=== PATIENT | female | born 1965 | race African-American/Black ===

== ENCOUNTER 2018-11-21 12:19 | Emergency (ER) | payer OTHER ==
[2018-11-21 14:42] LABS: Absolute Lymphocytes (CBC) 2.2 K/uL (0.7-4.9); Basophils % 1.2 % (0-1.3); Eosinophils % 2.3 % (0-4.4); Hematocrit 22.4 % (36.0-45.0); Lymphocytes % 33.3 % (15.3-44.8); MPV 8.1 fL (7.6-11.3); Monocytes % 10.8 % (3.3-12.3); RBC Red Blood Cell Count 3.47 M/uL (3.86-4.86)
[2018-11-21 15:00] LABS: Potassium 3.9 mmol/L (3.5-5.1)
[2018-11-21 15:34] LABS: Anisocytosis 2+; Blood Morphology Comment NOTED (NOT SEEN); Platelet Estimate INCR; Urine White Blood Cell Casts OK
[2018-11-21 15:35] LABS: Hypochromasia 2+
[2018-11-21 15:36] LABS: Ovalocytes 1+; Poikilocytosis 1+
[2018-11-21 15:40] LABS: Urine Blood NEGATIVE (NEG); Urine Glucose NEGATIVE (NEG); Urine Protein NEGATIVE (NEG); Urine pH 6.5 (5.0-7.0)
--- NOTE | 2018-11-21 16:02 | RAD REPORT ---
EXAM DESCRIPTION: CT - Abdomen Pelvis W Contrast - 11/21/2018 3:43 pm CLINICAL HISTORY: Abdominal pain, left lower pole mass COMPARISON: None. TECHNIQUE: Biphasic, helical CT imaging of the abdomen and pelvis was performed following 100 ml non -ionic IV contrast. No oral contrast administered. Delayed imaging of the pelvis was performed to cor rect for motion artifact on earlier imaging and due to need to evaluate IV injection site. All CT scans are performed using dose optimization technique as appropriate and may include automated exposure control or mA/KV adjustment according to patient size. FINDINGS: Multiple variably sized noncalcified masses in each lung base up to 15 mm in size. No sky cardial thickening or effusion. No pleural effusion. Liver size is normal. In the dome of the right lobe a 23 millimeter round low-density mass is present . This does not have simple cyst characteristics. A 12 millimeter low-density lesion is present in th e inferior tip of the right lobe liver. A 20 millimeter low-density lesion is present medial right lo be near the IVC. No splenomegaly or focal splenic process. No pancreatic abnormality seen. Gallbladde r and biliary tree are also without suspicious finding. Symmetric renal function is seen with no hydronephrosis or suspicious renal mass. No pyelonephritis o r acute parenchymal process. No bladder abnormalities. No adrenal abnormality seen. An enlarged lobulated uterus is present. There are numerous variably sized uterine masses up to 3 cm in size. Ovaries are not clearly distinguishable from the isodense tunneled opacified small bowel in each adnexa. No gastric dilatation or gastric wall thickening. No acute small bowel finding. Sigmoid diverticulosi s is present without diverticulitis. Mass cannot be excluded from the rectum or rectosigmoid junction region. No free air or pneumatosis. No abnormal free fluid collection. No bulky lymphadenopathy identified . Small lymph nodes may be obscured. There is a relative paucity of intra-abdominal fat creating isod [place] between on opacified bowel and in the lymph node. Disc and bony degenerative changes are present. No pathologic bone process identifiable. IMPRESSION: Multiple noncalcified spiculated masses in each lung base up to 15 mm in size. Metastati c disease is most likely. Lymphoma would be possible given the left orbital finding detailed on recen t MRI. Three lesions are present in the right lobe of the liver suspicious for metastatic disease. Enlarged lobulated uterus with multiple masses. This is typically a multi fibroid uterus. However, gi tavon the undiagnosed orbit and lung lesions, neoplastic process cannot be excluded. No gross abdominal or pelvic abnormal lymphadenopathy pattern. The isodensity of the bowel decreases sensitivity. Likewise, mass cannot be excluded from the rectum or rectosigmoid junction of the colon.
[2018-11-21] MEDS ORDERED: DIPHENHYDRAMINE 50 MG/ML VIAL ONE (17:03)
[2018-11-21] MEDS ORDERED: ACETAMINOPHEN 325 MG TABLET ONE (17:03)
[2018-11-21] MEDS ORDERED: NA CHLORIDE 0.9% 250 ML ONE (17:05)
--- NOTE | 2018-11-21 17:09 | ER ---
Nurse's Notes [facility] Name: Cherelle Ackerman Age: 53 yrs Sex: Female : 1965 Arrival Date: 11/21/2018 Time: 12:21 Bed 8 Private MD: Maxx Bernardo Diagnosis: Gastrointestinal hemorrhage, unspecified;Anemia;Other specified diseases of anus and rectum-Anal Mass Presentation: 11/21 12:30 Presenting complaint: Patient states: "I saw Dr. Ro yesterday and he did routine aa5 blood work and they called me today and said that my hemoglobin was a 5 and to come here". Pt denies SOB, denies chest pain. Pt denies any bleeding. Pt reports hx of Rectal cancer but is not on chemotherapy or radiation. 12:30 Transition of care: patient was not received from another setting of care. Onset of aa5 symptoms was November 21, 2018. Risk Assessment: Do you want to hurt yourself or someone else? Patient reports no desire to harm self or others. Care prior to arrival: None. 12:30 Acuity: ANABELLE 2 aa5 12:30 Method Of Arrival: Ambulatory aa5 12:30 Initial Sepsis Screen: Does the patient meet any 2 criteria? HR > 90 bpm. Does the aa5 patient have a suspected source of infection? No. Patient's initial sepsis screen is negative. 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 - Ebola Screening: : No symptoms or risks identified at this time. - Social history:: Smoking status: unknown. Screenin:35 Abuse screen: Denies threats or abuse. Nutritional screening: No deficits noted. aa5 Tuberculosis screening: No symptoms or risk factors identified. Fall Risk None identified. Assessment: 12:35 General: Appears comfortable, Behavior is calm, cooperative. Pain: Complains of pain in aa5 rectum Pain does not radiate. Quality of pain is described as pressure, tender, Is continuous, Aggravated by increased activity, repositioning. Neuro: Level of Consciousness is awake, alert, obeys commands, Oriented to person, place, time, situation, Reports Generalized weakness . Cardiovascular: Denies chest pain, Heart tones S1 S2 present Rhythm is regular. Respiratory: Airway is patent Respiratory effort is even, unlabored, Respiratory pattern is regular, symmetrical, Breath sounds are clear bilaterally. Denies shortness of breath. GI: Abdomen is flat, Bowel sounds present X 4 quads. Abd is soft and non tender X 4 quads. Patient currently denies nausea, vomiting, denies bloody stools, pt states "I only see blood when I wipe". : Reports recent UTI, has been taking Bactrim for 4 days. EENT: No signs and/or symptoms were reported regarding the EENT system. Derm: Skin is dry, Skin is pale, Skin temperature is warm. Musculoskeletal: Range of motion: intact in all extremities. 12:45 Reassessment: Pt assisted to restroom via wheelchair. . aa5 13:00 Reassessment: Pt remains in restroom, pt states "I am okay I am just having a bowel aa5 movement" . 13:40 Reassessment: PA notified of lab draw being delayed due to patient in restroom. . aa5 14:00 Reassessment: Pt transported back to room via wheelchair. . aa5 14:00 Neuro: Level of Consciousness is awake, alert, obeys commands, Oriented to person, aa5 place, time, situation. Respiratory: Airway is patent Respiratory effort is even, unlabored, Respiratory pattern is regular, symmetrical. Derm: Skin is dry, Skin is pale, Skin temperature is warm. 14:10 Reassessment: Missed IV attempt by AJ Rainey RN at bedside aa5 attempting IV at this time. . 15:15 Reassessment: Loose brown stool with bright red blood noted, Anus appears dilated, aa5 excoriation of skin noted to anal area. Pt c/o rectal area feeling "sore" . 15:15 Neuro: Level of Consciousness is awake, alert, obeys commands, Oriented to person, aa5 place, time, situation. Respiratory: Airway is patent Respiratory effort is even, unlabored, Respiratory pattern is regular, symmetrical. Derm: Skin is dry, Skin is pale, Skin temperature is warm. 16:00 Reassessment: Pt assisted to restroom via wheelchair, pt voided once . aa5 16:12 Reassessment: Blood transfusion consent for RBCs signed by patient. . aa5 16:12 Neuro: Level of Consciousness is awake, alert, obeys commands, Oriented to person, aa5 place, time, situation. Respiratory: Airway is patent Respiratory effort is even, unlabored, Respiratory pattern is regular, symmetrical. Derm: Skin is dry, Skin is pale, Skin temperature is warm. 17:35 Reassessment: RBC transfusion started at 1717, started at 50 cc/hr and now infusing at aa5 150 cc/hr. Pt tolerating well. Lungs CTA. Pt denies any complaints. NSR on monitor. (see blood transfusion record for further information). 18:00 Reassessment: Unsuccessful attempt to call report to [facility]. aa5 18:15 Reassessment: Pt assisted with bedside commode, pt voided once . aa5 18:17 Neuro: Level of Consciousness is awake, alert, obeys commands, Oriented to person, aa5 place, time, situation. Cardiovascular: Denies chest pain, Rhythm is sinus rhythm. Respiratory: Airway is patent Respiratory effort is even, unlabored, Respiratory pattern is regular, symmetrical, Breath sounds are clear bilaterally. Denies shortness of breath. Derm: Skin is dry, Skin is pale, Skin temperature is warm. 19:40 Reassessment: Patient appears in no apparent distress at this time. Patient and/or tl2 family updated on plan of care and expected duration. Pain level reassessed. Patient is alert, oriented x 3, equal unlabored respirations, skin warm/dry/pink. Spoke with received nurse at [facility], ROBERTO Bansal. Stated that she cannot accept in progress blood transfusion and that she would rather start second unit when she arrives to [facility]. Spoke with SHOBHA Connolly and he stated that she was stable enough to be transferred after completion of first unit. Will proceed with transfer. Vital Signs: 12:32 BP 122 / 71; Pulse 108; Resp 18 S; Temp 99.3(TE); Pulse Ox 100% on R/A; aa5 14:00 BP 113 / 68; Pulse 99; Resp 16 S; Temp 98.1(O); Pulse Ox 100% on R/A; aa5 15:00 BP 110 / 62; Pulse 115; Resp 18 S; Pulse Ox 99% on R/A; aa5 17:00 BP 98 / 80; Pulse 96; Resp 16 S; Temp 98.1(O); Pulse Ox 100% on R/A; aa5 17:32 BP 124 / 62; Pulse 91; Resp 16 S; Temp 98.1(O); Pulse Ox 100% on R/A; aa5 19:31 BP 109 / 76; Pulse 84; Resp 18; Temp 98.5(O); Pulse Ox 100% on R/A; tl2 ED Course: 12:21 Patient arrived in ED. as 12:21 Maxx Bernardo MD is Private Physician. as 12:30 Arm band placed on Patient placed in an exam room, on a stretcher. aa5 12:30 Patient has correct armband on for positive identification. Placed in gown. Bed in low aa5 position. Call light in reach. Side rails up X2. 12:30 Warm blanket given. Pillow given. Verbal reassurance given. cafeteria monitor on. Pulse jp3 ox on. NIBP on. 12:32 Mohsen Hernandez PA is PHCP. jr8 12:32 Yobany Breaux MD is Attending Physician. jr8 12:41 Phoebe Lewis, ROBERTO is Primary Nurse. aa5 12:54 Triage completed. aa5 14:38 Initial lab(s) drawn, by me, sent to lab. T\\T\\S collected, blood band applied to patient. iw Inserted saline lock: 22 gauge in right antecubital area, using aseptic technique. Blood collected. 15:37 CT Abd/Pelvis - IV Contrast Only In Process Unspecified. EDMS 15:54 initiated a transfer with Jennifer Anguiano RN from [facility]. eb 16:12 connected the colorectal surgeon monitoring specialist for [facility] with Mohsen YEAGER for patient eb transfer consultation. 16:53 connected the hospitalist monitoring specialist for [facility] with Mohsen YEAGER for patient transfer eb consultation. 17:06 administrative approval given by Dahlia Smith RN supervisor transferring and boxing/ patient has eb been accepted to the [facility] bed 2243/ report to be called to [phone]. 18:17 No provider procedures requiring assistance completed. aa5 19:00 Report given to ROBERTO Yanez. aa5 19:31 IV is patent, with fluids infusing freely, with good blood return, Patient transferred, tl2 IV remains in place. Administered Medications: 16:55 Drug: Tylenol 650 mg Route: PO; aa5 17:17 Follow up: Response: No adverse reaction aa5 16:55 Drug: Benadryl 12.5 mg Route: IVP; Site: right antecubital; aa5 17:15 Follow up: Response: No adverse reaction aa5 Point of Care Testing: Guaiac: 15:15 Stool Guaiac: Positive; Stool Hemoccult Control: Pass; aa5 15:15 Completed by SHOBHA aa5 Outcome: 17:09 ER care complete, transfer ordered by MD. cruz 19:31 Transferred by ground EMS to [facility], Transfer form completed. 19:31 Condition: stable 19:31 Discharge instructions given to patient, Instructed on the need for transfer. 20:22 Patient left the ED. tl2 Signatures: Dispatcher [employer] EDMS Anju Garcia Irene, RN RN Phoebe Lewis RN RN aa5 Mohsen Hernandez PA PA jr8 Jeferson Pereira RN RN hj Knox, Taylor, RN RN tl2 Jennifer Mccoy Jacob jp3 Corrections: (The following items were deleted from the chart) 14:27 14:25 Initial Sepsis Screen: Does the patient meet any 2 criteria? HR > 90 bpm. No. aa5 Patient's initial sepsis screen is negative. aa5 16:58 16:12 connected the colorectal surgeon with Mohsen YEAGER for patient transfer consultation ebeb 19:41 19:31 Reassessment: Patient appears in no apparent distress at this time. Patient tl2 and/or family updated on plan of care and expected duration. Pain level reassessed. Patient is alert, oriented x 3, equal unlabored respirations, skin warm/dry/pink. Spoke with ROBERTO Bansal receiving nurse at [facility] and she stated that if we start 2nd unit of blood here, they will not be able to complete transfusion at [facility] and she would rather start second unit when she arrives to room. Notified SHOBHA Connolly and he stated that pt was stable enough to be transferred after completion of the first unit. Will proceed with transfer : 19:31 BP 109 / 76; Pulse 83bpm; Resp 18bpm; Pulse Ox 100% RA; Temp 98.5F Oral; hj tl2 19:42 19:31 IV is patent, with fluids infusing freely, with good blood return, Patient tl2 transferred, IV remains in place.
--- NOTE | 2018-11-21 17:09 | EDPHYS ---
Physician Documentation [facility] Name: Cherelle Ackerman Age: 53 yrs Sex: Female : 1965 Arrival Date: 11/21/2018 Time: 12:21 Bed 8 Private MD: Maxx Bernardo ED Physician Yobany Breaux HPI: 11/21 14:12 This 53 yrs old Black Female presents to ER via Ambulatory with complaints of jr8 Anemia-needs blood transfusion. 14:12 Patient with history of untreated rectal cancer. Stated that she had routine blood work jr8 by PCP yesterday and shows hemoglobin of 5.1. Advised to come to ED at that time. Patient asymptomatic at this time . Severity of symptoms: At their worst the symptoms were mild in the emergency department the symptoms are unchanged. It is unknown whether or not the patient has had similar symptoms in the past. The patient has been recently seen by a physician:. 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 - Ebola Screening: : No symptoms or risks identified at this time. - Social history:: Smoking status: unknown. ROS: 14:12 Eyes: Negative for injury, pain, redness, and discharge, ENT: Negative for injury, jr8 pain, and discharge, Neck: Negative for injury, pain, and swelling, Cardiovascular: Negative for chest pain, palpitations, and edema, Respiratory: Negative for shortness of breath, cough, wheezing, and pleuritic chest pain, Abdomen/GI: Negative for abdominal pain, nausea, vomiting, diarrhea, and constipation, Back: Negative for injury and pain, MS/Extremity: Negative for injury and deformity, Skin: Negative for injury, rash, and discoloration, Neuro: Negative for headache, weakness, numbness, tingling, and seizure. Exam: 14:12 Eyes: Pupils equal round and reactive to light, extra-ocular motions intact. Lids and jr8 lashes normal. Conjunctiva pale. Sclera non icteric. Cornea within normal limits. Periorbital areas with no swelling, redness, or edema. ENT: Nares patent. No nasal discharge, no septal abnormalities noted. Tympanic membranes are normal and external auditory canals are clear. Oropharynx with no redness, swelling, or masses, exudates, or evidence of obstruction, uvula midline. Mucous membranes moist. Neck: Trachea midline, no thyromegaly or masses palpated, and no cervical lymphadenopathy. Supple, full range of motion without nuchal rigidity, or vertebral point tenderness. No Meningismus. Cardiovascular: Regular rate and rhythm with a normal S1 and S2. No gallops, murmurs, or rubs. Normal PMI, no JVD. No pulse deficits. Respiratory: Lungs have equal breath sounds bilaterally, clear to auscultation and percussion. No rales, rhonchi or wheezes noted. No increased work of breathing, no retractions or nasal flaring. Abdomen/GI: Soft, non-tender, with normal bowel sounds. No distension or tympany. No guarding or rebound. No evidence of tenderness throughout. Back: No spinal tenderness. No costovertebral tenderness. Full range of motion. MS/ Extremity: Pulses equal, no cyanosis. Neurovascular intact. Full, normal range of motion. Neuro: Awake and alert, GCS 15, oriented to person, place, time, and situation. Cranial nerves II-XII grossly intact. Motor strength 5/5 in all extremities. Sensory grossly intact. Cerebellar exam normal. Normal gait. 14:12 Skin: Appearance: Color: pale, Temperature: normal temperature, Moisture: normal moisture. Vital Signs: 12:32 BP 122 / 71; Pulse 108; Resp 18 S; Temp 99.3(TE); Pulse Ox 100% on R/A; aa5 14:00 BP 113 / 68; Pulse 99; Resp 16 S; Temp 98.1(O); Pulse Ox 100% on R/A; aa5 15:00 BP 110 / 62; Pulse 115; Resp 18 S; Pulse Ox 99% on R/A; aa5 17:00 BP 98 / 80; Pulse 96; Resp 16 S; Temp 98.1(O); Pulse Ox 100% on R/A; aa5 17:32 BP 124 / 62; Pulse 91; Resp 16 S; Temp 98.1(O); Pulse Ox 100% on R/A; aa5 19:31 BP 109 / 76; Pulse 84; Resp 18; Temp 98.5(O); Pulse Ox 100% on R/A; tl2 MDM: 12:32 Patient medically screened. [facility] 17:04 Data reviewed: vital signs, nurses notes, lab test result(s), radiologic studies, CT jr8 scan. Data interpreted: Pulse oximetry: on room air is 99 %. Interpretation: normal. Counseling: I had a detailed discussion with the patient and/or guardian regarding: the historical points, exam findings, and any diagnostic results supporting the discharge/admit diagnosis, lab results, radiology results, the need to transfer to another facility, [facility] does not immediately have the required specialist. ED course: [facility] called. Talked to Medicine and Colorectal who both accepted and consulted . 11/21 12:55 Order name: CBC with Diff; Complete Time: 16:12 [facility] 11/21 12:55 Order name: Basic Metabolic Panel; Complete Time: 15:03 [facility] 11/21 12:55 Order name: T\T\S [facility] 11/21 14:00 Order name: Urine Dipstick--Ancillary (enter results); Complete Time: 16:12 11/21 14:00 Order name: Urine --Ancillary (enter results); Complete Time: 16:12 11/21 14:53 Order name: CBC Smear Scan; Complete Time: 16:12 [facility] 11/21 12:55 Order name: IV; Complete Time: 14:33 [facility] 11/21 13:30 Order name: CT Abd/Pelvis - IV Contrast Only; Complete Time: 16:12 [facility] 11/21 15:13 Order name: Occult Blood--Ancillary; Complete Time: 16:12 11/21 15:35 Order name: Bb Add On 11/21 15:50 Order name: Packed RBC Leukored EDMS Administered Medications: 16:55 Drug: Tylenol 650 mg Route: PO; aa5 17:17 Follow up: Response: No adverse reaction aa5 16:55 Drug: Benadryl 12.5 mg Route: IVP; Site: right antecubital; aa5 17:15 Follow up: Response: No adverse reaction aa5 Point of Care Testing: Guaiac: 15:15 Stool Guaiac: Positive; Stool Hemoccult Control: Pass; aa5 15:15 Completed by SHOBHA aa5 Disposition: 11/21/18 17:09 Transfer ordered to [facility]. Diagnosis are Gastrointestinal hemorrhage, unspecified, Anemia, Other specified diseases of anus and rectum - Anal Mass. - Reason for transfer: Higher level of care. - Accepting physician is Dr. Garcia . - Condition is Fair. - Problem is new. - Symptoms are unchanged. Addendum: 11/23/2018 04:31 Co-signature as Attending Physician, Yobany Breaux MD. g s Signatures: Dispatcher [employer] EDMS Phoebe Lewis, RN RN aa5 Mohsen Hernandez PA PA jr8 Jeferson Pereira RN RN Renata Shepard RN RN tl2 Yobany Breaux MD MD Corrections: (The following items were deleted from the chart) 11/21 20:22 17:09 11/21/2018 17:09 Transfer ordered to [facility]. Diagnosis is tl2 Gastrointestinal hemorrhage, unspecified; Anemia; Other specified diseases of anus and rectum - Anal Mass. Reason for transfer: Higher level of care. Accepting physician is Dr. Garcia . Condition is Fair. Problem is new. Symptoms are unchanged. jr8
== END 2018-11-21 20:22 | disposition short-term general hospital (02) ==
LOC: ER 12:19
PROC: 30233N1 Transfusion of Nonautologous Red Blood Cells into Peripheral Vein, Percutaneous Approach (ICD-10-PCS; principal; 2018-11-21)
DX: D64.9 Anemia, unspecified (principal); K62.89 Other specified diseases of anus and rectum; Z85.048 Personal history of other malignant neoplasm of rectum, rectosigmoid junction, and anus; Z88.0 Allergy status to penicillin
CPT/HCPCS: 36415; 74177; 80048; 81003; 81025; 82272; 85025; 86850; 86900; 86901; 96374; 99285; P9016; Q9967

== ENCOUNTER 2018-12-31 15:04 | Emergency (ER) | payer OTHER ==
[2018-12-31] MEDS ORDERED: NA CHLORIDE 0.9% 1,000 ML ONE (15:48)
[2018-12-31 16:26] LABS: Absolute Lymphocytes (CBC) 1.9 K/uL (0.7-4.9); Basophils % 0.3 % (0-1.3); Hematocrit 27.3 % (36.0-45.0); Lymphocytes % 21.5 % (15.3-44.8); MPV 7.5 fL (7.6-11.3); RBC Red Blood Cell Count 3.55 M/uL (3.86-4.86)
[2018-12-31] MEDS ORDERED: MORPHINE 4 MG/ML SYR ONE (16:28)
[2018-12-31] MEDS ORDERED: ONDANSETRON 4 MG/2 ML VIAL ONE (16:28)
[2018-12-31 16:50] LABS: ALT/SGPT 21 U/L (12-78); AST/SGOT 21 U/L (15-37); Albumin 2.6 g/dL (3.4-5.0); Alkaline Phosphatase 126 U/L (45-117); BUN Blood Urea Nitrogen 17 mg/dL (7-18); Bicarbonate 25 mmol/L (21-32); Bilirubin Direct < 0.1 mg/dL (0-0.2); Bilirubin Total 0.1 mg/dL (0.2-1.0); Glucose Level 86 mg/dL (74-106); Magnesium 2.1 mg/dL (1.8-2.4); NT PRO-BNP 65 pg/mL (<125); Potassium 3.5 mmol/L (3.5-5.1); Protein, Total 7.9 g/dL (6.4-8.2); Sodium Level 138 mmol/L (136-145); Troponin (Emerg Dept Use Only) < 0.02 ng/mL (0.0-0.045)
[2018-12-31 16:57] LABS: Anisocytosis 3+; Blood Morphology Comment NOTED (NOT SEEN); Platelet Estimate ADEQ; Urine White Blood Cell Casts OK
[2018-12-31 16:58] LABS: Hypochromasia 2+; Polychromasia SLIGHT; Target Cells 1+
--- NOTE | 2018-12-31 17:30 | ER ---
Nurse's Notes [facility] Name: Cherelle Ackerman Age: 53 yrs Sex: Female : 1965 Arrival Date: 12/31/2018 Time: 15:07 Bed 8 Private MD: Maxx Bernardo Diagnosis: Weakness-metastatic rectal cancer;Anemia, unspecified Presentation: 12/31 15:11 Presenting complaint: Patient states: Pelvic pain, patient has rectal CX and just aj started chemo. Reports small amount of bright red rectal bleeding. Transition of care: patient was not received from another setting of care. Onset of symptoms was December 29, 2018. Risk Assessment: Do you want to hurt yourself or someone else? Patient reports no desire to harm self or others. Initial Sepsis Screen: Does the patient meet any 2 criteria? No. Patient's initial sepsis screen is negative. Does the patient have a suspected source of infection? No. Patient's initial sepsis screen is negative. Care prior to arrival: None. 15:11 Method Of Arrival: Wheelchair 15:11 Acuity: ANABELLE 2 aj Triage Assessment: 15:12 General: Appears in no apparent distress. uncomfortable, Behavior is calm, cooperative, aj appropriate for age. Pain: Complains of pain in pelvis. Neuro: Level of Consciousness is awake, alert, obeys commands, Oriented to person, place, time, situation, Appropriate for age. Respiratory: Airway is patent Respiratory effort is even, unlabored, Respiratory pattern is regular, symmetrical. GI: Reports rectal bleeding. Derm: Skin is intact, is healthy with good turgor, Skin is dry, Skin is pale. Historical: - Allergies: 15:12 PENICILLINS; aj - Home Meds: 15:12 Bactrim DS Oral for UTI [Active]; aj - PMHx: 17:32 rectal cancer; mets to liver; sg - PSHx: 15:12 Knee surgery; aj - Immunization history:: Adult Immunizations up to date. - Social history:: Smoking status: Patient/guardian denies using tobacco. - Ebola Screening: : Patient negative for fever greater than or equal to 101.5 degrees Fahrenheit, and additional compatible Ebola Virus Disease symptoms Patient denies exposure to infectious person Patient denies travel to an Ebola-affected area in the 21 days before illness onset No symptoms or risks identified at this time. Screenin:20 Abuse screen: Denies threats or abuse. Denies injuries from another. Nutritional sg screening: No deficits noted. Tuberculosis screening: No symptoms or risk factors identified. Never had TB. Fall Risk None identified. Assessment: 15:29 Reassessment: Patient appears in no apparent distress at this time. General: Appears sg comfortable, slender, well groomed, well developed, well nourished, Behavior is calm, cooperative, quiet. General: Reports fatigue for. Pain: Complains of pain in buttocks and pelvis Quality of pain is described as sharp. Neuro: Level of Consciousness is awake, alert, obeys commands, Oriented to person, place, time, situation, Audit Specialist are equal bilaterally Moves all extremities. Full function Gait is unsteady, Speech is normal, Facial symmetry appears normal, Reports weakness. Cardiovascular: Capillary refill is brisk in bilateral fingers Patient's skin is warm and dry. Chest pain is denied. Respiratory: Airway is patent Respiratory effort is even, unlabored, Respiratory pattern is regular, symmetrical. GI: Abdomen is flat, non-distended, Reports nausea. : Reports pain pelvic pain. EENT: No signs and/or symptoms were reported regarding the EENT system. Derm: Skin is healthy with good turgor, is thin, Skin is dry, Skin is normal, Skin temperature is warm. Musculoskeletal: Circulation, motion, and sensation intact. Range of motion: intact in all extremities. 16:30 Reassessment: Patient appears in no apparent distress at this time. phlebotomy at sg bedside at this time, attempting to obtain a PT/TS, unsuccessful. A different support service tech to come attempt to obtain specimen, will continue to monitor. 16:49 Reassessment: pt back from restroom, Tg from phlebotomy at bedside for draw of PT/TS. sg 17:29 Reassessment: Patient appears in no apparent distress at this time. lab called, reports sg that the blue top specimen sent to lab has hemolyzed, attempt to draw a repeat blue top un successful at this time, pt stated understanding, notified. Vital Signs: 15:12 BP 117 / 61; Pulse 118; Resp 20; Temp 99.1; Pulse Ox 100% on R/A; Weight 59.42 kg; aj Height 5 ft. 9 in. (175.26 cm); 17:30 BP 119 / 81; Pulse 98; Resp 16; Pulse Ox 98% on R/A; sg 15:12 Body Mass Index 19.35 (59.42 kg, 175.26 cm) ED Course: 15:07 Patient arrived in ED. rg4 15:08 Maxx Bernardo MD is Private Physician. rg4 15:12 Triage completed. aj 15:12 Arm band placed on left wrist. Patient placed in an exam room. aj 15:18 Inder Roman MD is Attending Physician. [facility] 15:23 Murtaza Balbuena, ROBERTO is Primary Nurse. sg 15:25 No provider procedures requiring assistance completed. sg 15:40 Patient has correct armband on for positive identification. Bed in low position. Call sg light in reach. Side rails up X2. Pulse ox on. NIBP on. Warm blanket given. Head of bed elevated. 16:08 Missed attempt(s): 22 gauge in left antecubital area. 24 gauge in left antecubital sg area. Bleeding controlled, band aid applied, catheter tip intact. 16:11 Radiology exam delayed due to IV insertion attempt and/or patient not having az appropriate IV at this time. 16:14 Inserted saline lock: 22 gauge in left forearm, using aseptic technique. Blood ss collected. 17:05 XRAY Chest (1 view) In Process Unspecified. EDMS 17:07 EKG done, by equipment tech. reviewed by Inder Roman MD. 3 18:00 IV discontinued, intact, bleeding controlled, No redness/swelling at site. Pressure sg dressing applied. Administered Medications: 16:34 Drug: morphine 2 mg {Note: RASS of +2.} Route: IVP; Site: left wrist; sg 17:11 Follow up: Response: No adverse reaction; Pain is unchanged, physician notified; RASS: sg Restless (+1) 16:34 Drug: Zofran 4 mg Route: IVP; Site: left wrist; sg 17:33 Follow up: Response: No adverse reaction sg 17:00 Drug: NS 0.9% 500 ml Route: IV; Rate: bolus; Site: left wrist; sg 17:11 Drug: morphine 2 mg {Note: RASS +1 .} Route: IVP; Site: left wrist; sg 17:32 Follow up: Response: No adverse reaction; Pain is unchanged, physician notified; RASS: sg Restless (+1) 17:12 Drug: NS 0.9% 1000 ml Route: IV; Rate: 125 ml/hr; Site: left wrist; sg Outcome: 17:29 Discharge ordered by . nirav 18:00 Discharged to home ambulatory, with family. sg 18:00 Condition: good 18:00 Discharge instructions given to patient, Instructed on discharge instructions, follow up and referral plans. safety practices, Demonstrated understanding of instructions, follow-up care. 18:05 Patient left the ED. sg Signatures: Dispatcher [employer] EDMurtaza Miller RN Dahlia Demarco RN Inder Monsalve MD MD cha Smirch, Shelby, RN Sabrina Almanza4 Rosario Alexandra 3 Merary Randle Corrections: (The following items were deleted from the chart) 17:12 17:11 morphine 2 mg IVP in left wrist sg 17:32 15:12 PMHx: rectal cancer; willy
--- NOTE | 2018-12-31 17:31 | EDPHYS ---
Physician Documentation [facility] Name: Cherelle Ackerman Age: 53 yrs Sex: Female : 1965 Arrival Date: 12/31/2018 Time: 15:07 Bed 8 Private MD: Maxx Bernardo ED Physician Inder Roman HPI: 12/31 15:49 This 53 yrs old Black Female presents to ER via Wheelchair with complaints of Pelvic nirav Pain, Weakness, Dizziness. 15:49 The patient presents to the emergency department with weakness of the. nirav Historical: - Allergies: 15:12 PENICILLINS; aj - Home Meds: 15:12 Bactrim DS Oral for UTI [Active]; aj - PMHx: 17:32 rectal cancer; mets to liver; sg - PSHx: 15:12 Knee surgery; aj - Immunization history:: Adult Immunizations up to date. - Social history:: Smoking status: Patient/guardian denies using tobacco. - Ebola Screening: : Patient negative for fever greater than or equal to 101.5 degrees Fahrenheit, and additional compatible Ebola Virus Disease symptoms Patient denies exposure to infectious person Patient denies travel to an Ebola-affected area in the 21 days before illness onset No symptoms or risks identified at this time. ROS: 15:50 Constitutional: Negative for fever, chills, and weight loss, Eyes: Negative for injury, nirav pain, redness, and discharge, ENT: Negative for injury, pain, and discharge, Neck: Negative for injury, pain, and swelling, Cardiovascular: Negative for chest pain, palpitations, and edema, Respiratory: Negative for shortness of breath, cough, wheezing, and pleuritic chest pain, Abdomen/GI: Negative for abdominal pain, nausea, vomiting, diarrhea, and constipation, Back: Negative for injury and pain, : Negative for injury, bleeding, discharge, and swelling, MS/Extremity: Negative for injury and deformity, Skin: Negative for injury, rash, and discoloration, Psych: Negative for depression, anxiety, suicide ideation, homicidal ideation, and hallucinations, Allergy/Immunology: Negative for hives, rash, and allergies, Endocrine: Negative for neck swelling, polydipsia, polyuria, polyphagia, and marked weight changes, Hematologic/Lymphatic: Negative for swollen nodes, abnormal bleeding, and unusual bruising. 15:50 Neuro: Positive for weakness. Exam: 15:50 Constitutional: This is a well developed, well nourished patient who is awake, alert, nirva and in no acute distress. Head/Face: Normocephalic, atraumatic. Eyes: Pupils equal round and reactive to light, extra-ocular motions intact. Lids and lashes normal. Conjunctiva and sclera are non-icteric and not injected. Cornea within normal limits. Periorbital areas with no swelling, redness, or edema. ENT: Nares patent. No nasal discharge, no septal abnormalities noted. Tympanic membranes are normal and external auditory canals are clear. Oropharynx with no redness, swelling, or masses, exudates, or evidence of obstruction, uvula midline. Mucous membranes moist. Neck: Trachea midline, no thyromegaly or masses palpated, and no cervical lymphadenopathy. Supple, full range of motion without nuchal rigidity, or vertebral point tenderness. No Meningismus. Chest/axilla: Normal chest wall appearance and motion. Nontender with no deformity. No lesions are appreciated. Cardiovascular: Regular rate and rhythm with a normal S1 and S2. No gallops, murmurs, or rubs. Normal PMI, no JVD. No pulse deficits. Respiratory: Lungs have equal breath sounds bilaterally, clear to auscultation and percussion. No rales, rhonchi or wheezes noted. No increased work of breathing, no retractions or nasal flaring. Abdomen/GI: Soft, non-tender, with normal bowel sounds. No distension or tympany. No guarding or rebound. No evidence of tenderness throughout. Back: No spinal tenderness. No costovertebral tenderness. Full range of motion. Skin: Warm, dry with normal turgor. Normal color with no rashes, no lesions, and no evidence of cellulitis. MS/ Extremity: Pulses equal, no cyanosis. Neurovascular intact. Full, normal range of motion. Psych: Awake, alert, with orientation to person, place and time. Behavior, mood, and affect are within normal limits. 15:50 Skin: Appearance: Temperature: normal temperature, Moisture: normal moisture, petechiae, not noted, ecchymosis, not noted, flushing, not noted, diaphoresis is not appreciated, swelling, is not appreciated. 15:50 Neuro: Orientation: is normal, appropriate for stated age, to person, place \T\ time. Mentation: is normal, appropriate for stated age, no acute changes, Memory: is normal, appropriate for stated age, no acute changes, Cranial nerves: grossly normal, is grossly normal based on the patient's age, no acute changes, Cerebellar function: is grossly normal based on the patient's age, no acute changes, Motor: is grossly normal based on the patient's age, no acute changes, moves all fours, Gait: is steady, appropriate for age. Vital Signs: 15:12 BP 117 / 61; Pulse 118; Resp 20; Temp 99.1; Pulse Ox 100% on R/A; Weight 59.42 kg; aj Height 5 ft. 9 in. (175.26 cm); 17:30 BP 119 / 81; Pulse 98; Resp 16; Pulse Ox 98% on R/A; sg 15:12 Body Mass Index 19.35 (59.42 kg, 175.26 cm) aj MDM: 15:18 Patient medically screened. [facility] 15:52 Data reviewed: vital signs, nurses notes, lab test result(s), EKG, radiologic studies, nirav plain films. 12/31 15:45 Order name: Basic Metabolic Panel; Complete Time: 17:13 [facility] 12/31 15:45 Order name: CBC with Diff; Complete Time: 17:13 [facility] 12/31 15:45 Order name: LFT's; Complete Time: 17:13 [facility] 12/31 15:45 Order name: Magnesium; Complete Time: 17:13 [facility] 12/31 15:45 Order name: NT PRO-BNP; Complete Time: 17:13 [facility] 12/31 15:45 Order name: Troponin (emerg Dept Use Only); Complete Time: 17:13 [facility] 12/31 15:45 Order name: XRAY Chest (1 view) [facility] 12/31 15:55 Order name: Bb Add On bd 12/31 16:32 Order name: CBC Smear Scan; Complete Time: 17:13 EDMS 12/31 15:45 Order name: EKG; Complete Time: 15:47 [facility] 12/31 15:45 Order name: Cardiac monitoring; Complete Time: 17:00 [facility] 12/31 15:45 Order name: IV Saline Lock; Complete Time: 17:00 [facility] 12/31 15:45 Order name: Labs collected and sent; Complete Time: 17:00 [facility] 12/31 15:45 Order name: O2 Per Protocol; Complete Time: 15:46 [facility] 12/31 15:45 Order name: O2 Sat Monitoring; Complete Time: 15:46 [facility] Administered Medications: 16:34 Drug: morphine 2 mg {Note: RASS of +2.} Route: IVP; Site: left wrist; sg 17:11 Follow up: Response: No adverse reaction; Pain is unchanged, physician notified; RASS: sg Restless (+1) 16:34 Drug: Zofran 4 mg Route: IVP; Site: left wrist; sg 17:33 Follow up: Response: No adverse reaction sg 17:00 Drug: NS 0.9% 500 ml Route: IV; Rate: bolus; Site: left wrist; sg 17:11 Drug: morphine 2 mg {Note: RASS +1 .} Route: IVP; Site: left wrist; sg 17:32 Follow up: Response: No adverse reaction; Pain is unchanged, physician notified; RASS: sg Restless (+1) 17:12 Drug: NS 0.9% 1000 ml Route: IV; Rate: 125 ml/hr; Site: left wrist; sg Disposition: 12/31/18 17:29 Discharged to Home. Impression: Weakness - metastatic rectal cancer, Anemia, unspecified. - Condition is Fair. - Discharge Instructions: Anemia, Nonspecific, Blood Transfusion, Adult, Weakness, Fatigue, Near-Syncope, [id number], Blood Transfusion, [id number], Weakness, [id number]. - Prescriptions for Vitamin 27- 0.8 mg Oral Tablet - take 1 tablet by ORAL route once daily; 30 tablet. - Medication Reconciliation Form, Thank You Letter, Antibiotic Education, Prescription Opioid Use form. - Follow up: Private Physician; When: 2 - 3 days; Reason: Recheck today's complaints, Continuance of care, Re-evaluation by your physician. - Problem is new. - Symptoms are unchanged. Signatures: Dispatcher [employer] Murtaza Smith RN RN sg Myers, Amanda, RN RN aj Anderson, Corey, MD MD cha Smirch, Shelby, RN RN ss Corrections: (The following items were deleted from the chart) 17:32 15:12 PMHx: rectal cancer; willy 17:48 17:12 Labs - recollect needed ordered. ss sg 17:49 15:47 PROTIME (+INR)+[id number].BRZ ordered. EDMS EDMS 18:05 17:29 12/31/2018 17:29 Discharged to Home. Impression: Weakness - metastatic rectal sg cancer; Anemia, unspecified. Condition is Fair. Forms are Medication Reconciliation Form, Thank You Letter, Antibiotic Education, Prescription Opioid Use. Follow up: Private Physician; When: 2 - 3 days; Reason: Recheck today's complaints, Continuance of care, Re-evaluation by your physician. Problem is new. Symptoms are unchanged. nirav
--- NOTE | 2018-12-31 19:17 | RAD REPORT ---
EXAM DESCRIPTION: Tyson Single View12/31/2018 5:08 pm CLINICAL HISTORY: Cough COMPARISON: 2018 FINDINGS: The lungs contain many pulmonary nodules bilaterally measuring up to 24 millimeters Heart is normal size. Such venous line in place IMPRESSION: Many pulmonary nodules consistent with metastases
--- NOTE | 2019-01-01 16:30 | EKG ---
Test Date: 2018-12-31 Test Time: 16:51:39 Electrical Technician Instructor: DUONG MEASUREMENT RESULTS: Intervals: Rate: 95 TN: 124 QRSD: 70 QT: 352 QTc: 442 [place]: P: 83 TN: 124 QRS: 68 T: 73 INTERPRETIVE STATEMENTS: Normal sinus rhythm Minimal voltage criteria for LVH, may be normal variant Nonspecific ST abnormality Abnormal ECG No previous ECG available for comparison Electronically Signed On 01-01-19 16:26:28 CDT by Tanner Rodrigues
== END 2018-12-31 18:05 | disposition home or self-care (01) ==
LOC: ER 15:04
DX: C20 Malignant neoplasm of rectum (principal); C78.7 Secondary malignant neoplasm of liver and intrahepatic bile duct; R53.1 Weakness; D64.9 Anemia, unspecified; Z88.0 Allergy status to penicillin
CPT/HCPCS: 93005; 85025; 80048; 36415; 83735; 80076; 84484; 83880; 71045; 96375; 96374; 99284; J7030; J2405

== ENCOUNTER 2021-03-13 21:09 | Emergency (ER) | payer BC, OTHER ==
--- NOTE | 2021-03-13 22:38 | EDPHYS ---
Physician Documentation [facility] Name: Cherelle Ackerman Age: 55 yrs Sex: Female : 1965 Arrival Date: 03/13/2021 Time: 21:11 Bed 7 Private MD: ED Physician Inder Roman HPI: 03/13 22:33 This 55 yrs old Black Female presents to ER via EMS with complaints of DEHYDRATION. nirav 22:33 dehydrated, hospice, weakness, son cant manage at home. Onset: The symptoms/episode nirav began/occurred 3 day(s) ago. Severity of symptoms: At their worst the symptoms were mild in the emergency department the symptoms are unchanged. The patient has experienced similar episodes in the past, multiple times. Historical: - Allergies: 22:16 PENICILLINS; df1 23:58 terbutaline; df1 - Home Meds: 23:58 Vitamin C 500 mg/15 mL Oral liqd 500 mg/5 mL daily [Active]; ferrous sulfate 325 mg (65 df1 mg iron) Oral cpER daily [Active]; prochlorperazine maleate 10 mg Oral tab 1 tab 4 times per day [Active]; Vitamin Oral tab 1 tab once daily [Active]; 03/14 00:05 [place] 10-325 mg Oral tab 1 tab every 6 hours [Active]; morphine 60 mg Oral CERP 1 cap 2 df1 times per day [Active]; Zofran 4 mg/5 mL Oral soln 5 mL 4 times per day [Active]; mirtazapine 7.5 mg Oral tab 1 tab once daily [Active]; - PMHx: 03/13 22:16 chemo; df1 23:58 rectal cancer; mets to liver, bone, lung; seasonal allergy; radiation; df1 - PSHx: 23:58 ilieostomy; right knee surgery; df1 - Immunization history:: Adult Immunizations up to date, Client reports receiving the 2nd dose of the Covid vaccine. - Social history:: Smoking status: Patient denies any tobacco usage or history of. ROS: 22:34 Constitutional: Negative for fever, chills, and weight loss, Eyes: Negative for injury, nirav pain, redness, and discharge, ENT: Negative for injury, pain, and discharge, Neck: Negative for injury, pain, and swelling, Cardiovascular: Negative for chest pain, palpitations, and edema, Respiratory: Negative for shortness of breath, cough, wheezing, and pleuritic chest pain, Abdomen/GI: Negative for abdominal pain, nausea, vomiting, diarrhea, and constipation, Back: Negative for injury and pain, : Negative for injury, bleeding, discharge, and swelling, MS/Extremity: Negative for injury and deformity, Skin: Negative for injury, rash, and discoloration, Psych: Negative for depression, anxiety, suicide ideation, homicidal ideation, and hallucinations, Allergy/Immunology: Negative for hives, rash, and allergies, Endocrine: Negative for neck swelling, polydipsia, polyuria, polyphagia, and marked weight changes, Hematologic/Lymphatic: Negative for swollen nodes, abnormal bleeding, and unusual bruising. 22:34 Neuro: Positive for weakness. Exam: 22:34 Constitutional: This is a well developed, well nourished patient who is awake, alert, nirav and in no acute distress. Head/Face: Normocephalic, atraumatic. Eyes: Pupils equal round and reactive to light, extra-ocular motions intact. Lids and lashes normal. Conjunctiva and sclera are non-icteric and not injected. Cornea within normal limits. Periorbital areas with no swelling, redness, or edema. ENT: Nares patent. No nasal discharge, no septal abnormalities noted. Tympanic membranes are normal and external auditory canals are clear. Oropharynx with no redness, swelling, or masses, exudates, or evidence of obstruction, uvula midline. Mucous membranes moist. Neck: Trachea midline, no thyromegaly or masses palpated, and no cervical lymphadenopathy. Supple, full range of motion without nuchal rigidity, or vertebral point tenderness. No Meningismus. Chest/axilla: Normal chest wall appearance and motion. Nontender with no deformity. No lesions are appreciated. Cardiovascular: Regular rate and rhythm with a normal S1 and S2. No gallops, murmurs, or rubs. Normal PMI, no JVD. No pulse deficits. Respiratory: Lungs have equal breath sounds bilaterally, clear to auscultation and percussion. No rales, rhonchi or wheezes noted. No increased work of breathing, no retractions or nasal flaring. Abdomen/GI: Soft, non-tender, with normal bowel sounds. No distension or tympany. No guarding or rebound. No evidence of tenderness throughout. Back: No spinal tenderness. No costovertebral tenderness. Full range of motion. Female : Normal external genitalia. Skin: Warm, dry with normal turgor. Normal color with no rashes, no lesions, and no evidence of cellulitis. MS/ Extremity: Pulses equal, no cyanosis. Neurovascular intact. Full, normal range of motion. Psych: Awake, alert, with orientation to person, place and time. Behavior, mood, and affect are within normal limits. 22:34 Neuro: Orientation: is normal, appropriate for stated age, no acute changes, Mentation: is normal, appropriate for stated age, no acute changes, Memory: is normal, appropriate for stated age, no acute changes, Cranial nerves: grossly normal, is grossly normal based on the patient's age, no acute changes, Cerebellar function: is grossly normal, is grossly normal based on the patient's age, no acute changes, Motor: moves all fours, Sensation: is normal, no obvious gross deficits, appropriate no acute changes, Gait: not tested. Deep tendon reflexes are 1 (trace) + in the bilateral brachioradialis, bicep, tricep and patellar and Achilles tendons, Babinski testing is normal, seizure activity, is not displayed by the patient. 23:18 ECG was reviewed by the Attending Physician. [facility] Vital Signs: 21:21 BP 123 / 98; Pulse 79; Resp 20; Temp 98.8; Pulse Ox 100% on R/A; Weight 36.29 kg; df1 Height 5 ft. 9 in. (175.26 cm); Pain 8/10; 22:20 BP 129 / 101; Pulse 80; Resp 18; Pulse Ox 100% on R/A; df1 03/14 00:43 BP 127 / 90; Pulse 101; Resp 22; Pulse Ox 100% ; bs2 00:53 BP 127 / 90; Pulse 94; Resp 18; Pulse Ox 100% on R/A; df1 02:05 BP 119 / 83; Pulse 107; Resp 18; Pulse Ox 100% on R/A; df1 03/13 21:21 Body Mass Index 11.81 (36.29 kg, 175.26 cm) df1 MDM: 03/13 21:16 Patient medically screened. [facility] 22:35 Differential diagnosis: Nonspecific abd pain, viral gastroenteritis, gastroenteritis. nirav Differential Diagnosis altered mental status, sepsis, flu. Data reviewed: vital signs, nurses notes, EMS record, lab test result(s), EKG, radiologic studies, plain films. Data interpreted: phototypesetting equipment monitor: rate is 80 beats/min, rhythm is regular, Pulse oximetry: on room air is 100 %. Test interpretation: by ED physician or midlevel provider: ECG, plain radiologic studies. Counseling: I had a detailed discussion with the patient and/or guardian regarding: the historical points, exam findings, and any diagnostic results supporting the discharge/admit diagnosis, lab results, radiology results, the need for further work-up and treatment in the hospital. 03/13 21:18 Order name: Basic Metabolic Panel [facility] 03/13 Order name: CBC with Diff [facility] 03/13 Order name: LFT's; Complete Time: 00:02 [facility] 03/13 21: Order name: Magnesium; Complete Time: 00:02 [facility] 03/13 21:18 Order name: NT PRO-BNP; Complete Time: 00:02 [facility] 03/13 Order name: PT-INR; Complete Time: 23:10 [facility] 03/13 21:18 Order name: Troponin (emerg Dept Use Only); Complete Time: 00:02 [facility] 03/13 21:18 Order name: Blood Culture Adult (2) [facility] 03/1318 Order name: Lactate; Complete Time: 00:02 [facility] 03/13 21:18 Order name: Urine Culture [facility] 03/13 21:18 Order name: Basic Metabolic Panel; Complete Time: 00:02 [facility] 03/13 21:18 Order name: CBC with Automated Diff; Complete Time: 00:02 [facility] 03/13 21:38 Order name: SARS-COV-2 RT PCR; Complete Time: 23:10 [facility] 03/13 21:18 Order name: XRAY Chest (1 view) [facility] 03/1318 Order name: EKG; Complete Time: 21:18 [facility] 03/13 21:18 Order name: Cardiac monitoring; Complete Time: 22:28 [facility] 03/13 21:18 Order name: EKG - Nurse/Tech; Complete Time: 23:28 [facility] 03/13 21:18 Order name: IV Saline Lock; Complete Time: 22:28 [facility] 03/13 21:18 Order name: Labs collected and sent; Complete Time: 23:06 [facility] 10/18 21:18 Order name: O2 Per Protocol; Complete Time: 22:28 [facility] 03/13 21:18 Order name: O2 Sat Monitoring; Complete Time: :28 [facility] 03/13 23:10 Order name: Manual Differential; Complete Time: 00:02 EDMS 03/14 00:18 Order name: Urine Dipstick-Ancillary EDMS 03/13 21:18 Order name: Urine Dipstick-Ancillary (obtain specimen); Complete Time: 00:42 [facility] EC:18 Rate is 83 beats/min. Rhythm is regular. QRS [place] is Normal. CO interval is normal. QRS nirav interval is normal. QT interval is normal. No Q waves. T waves are Normal. No ST changes noted. Clinical impression: Normal ECG and No evidence of ischemia. Interpreted by me. Reviewed by me. Administered Medications: 21:30 Drug: NS 0.9% 1000 ml Route: IV; Rate: 1 bolus; Site: right antecubital; df1 23:06 Follow up: Response: No adverse reaction; IV Status: Completed infusion; IV Intake: df1 1000ml 22:45 Drug: morphine 2 mg Route: IVP; Site: right antecubital; df1 23:36 Follow up: Response: Pain is unchanged, physician notified df1 22:45 Drug: Zofran (Ondansetron) 4 mg Route: IVP; Site: right antecubital; df1 23:36 Follow up: Response: Nausea is decreased df1 03/14 00:11 Drug: levofloxacin 500 mg Volume: 100 ml; Route: IVPB; Infused Over: 60 mins; Site: bs2 right antecubital; 01:36 Follow up: IV Status: Completed infusion; IV Intake: 100ml df1 00:37 Drug: Potassium Chloride 20 mEq Route: IV; Rate: per protocol; Site: Port-a-cath; bs2 02:35 Follow up: IV Status: Completed infusion; IV Intake: 100ml df1 00:37 Drug: NS 0.9% with KCl 20 mEq/L 1000 ml Route: IV; Rate: 125 ml/hr; Site: Port-a-cath; bs2 03:13 Drug: morphine 2 mg Route: IVP; Site: right antecubital; df1 Disposition Summary: 03/13/21 23:14 Transfer Ordered Transfer Location: Other Acute Care Facility nirav Reason: Higher level of care nirav Condition: Serious(03/13/21 23:14) nirav Problem: new(03/13/21 23:14) nirav Symptoms: have improved(03/13/21 23:14) nirav Accepting Physician: to [facility](03/14/21 03:20) df1 Diagnosis - Dehydration(03/13/21 23:14) nirav - Anemia, unspecified - STAGE 4 RECTAL CANCER, HOSPICE nirav - Elevated white blood cell count nirav - Weakness(03/13/21 23:14) nirav - Bandemia nirav - Hypokalemia nirav Forms: - Medication Reconciliation Form nirav - SBAR form nirav Signatures: Dispatcher [employer] EDMS Inder Roman MD MD cha Smith, Bridget, RN RN bs2 Susana Ashton df1 Corrections: (The following items were deleted from the chart) 03/13 21:38 21:18 CORONAVIRUS+MR.LAB.BRZ ordered. EDMS EDMS 23:11 22:37 Observation nirav nirav 23:11 22:37 Ann-Marie Stephens nirav nirav 23:11 22:37 Telemetry/MedSurg (observation) nirav nirav 23:11 22:37 Stable nirav nirav 23:11 22:37 new nirav nirav 23:11 22:37 have improved nirav nirav 23:11 22:37 Standard nirav nirav 23:11 22:37 nirav nirav 23:11 22:37 Dehydration - rectal cancer stage 4, hospice nirav nirav 23:11 22:37 Weakness nirav nirav 03/14 00:04 03/13 23:14 to [facility] nirav nirav 03/14 00:07 03/13 22:16 PMHx: rectal cancer; mets to liver; df1 df1 03/14 00:07 03/13 23:58 PSHx: seasonal allergy; df1 df1 03/14 00:07 03/13 23:58 PSHx: radiation; df1 df1 03/14 03:20 00:04 to [facility] nirav df1
--- NOTE | 2021-03-13 22:38 | ER ---
Nurse's Notes [facility] Name: Cherelle Ackerman Age: 55 yrs Sex: Female : 1965 Arrival Date: 03/13/2021 Time: 21:11 Bed 7 Private MD: Diagnosis: Dehydration;Anemia, unspecified-STAGE 4 RECTAL CANCER, HOSPICE;Elevated white blood cell count;Weakness;Bandemia;Hypokalemia Presentation: 03/13 21:21 Chief complaint: Patient states: Dehydration. Coronavirus screen: Vaccine status: df1 Patient reports receiving the 2nd dose of the covid vaccine. The client reports previous COVID testing was negative. Date of collection: March 05, 2021. Ebola Screen: Patient negative for fever greater than or equal to 101.5 degrees Fahrenheit, and additional compatible Ebola Virus Disease symptoms Patient denies exposure to infectious person. Patient denies travel to an Ebola-affected area in the 21 days before illness onset. Initial Sepsis Screen: Does the patient meet any 2 criteria? No. Patient's initial sepsis screen is negative. Does the patient have a suspected source of infection? No. Patient's initial sepsis screen is negative. Risk Assessment: Do you want to hurt yourself or someone else? Patient reports no desire to harm self or others. 21:21 Method Of Arrival: EMS: [facility] df1 21:21 Acuity: ANABELLE 3 df1 21:26 Note Pt presents via EMS c/o dehydration. Pt stopped chemo for colorectal CA. Pt at df1 home with hospice. Pt A\T\Ox4 states right hip pain 8/10. IV with NS bolus started in route. Pt presents with britton from home. 23:35 Onset of symptoms is unknown. df1 03/14 00:51 Note Ileostomy emptied. Mostly air in bag. Ostomy red/beefy. Scant amount of liquid df1 brown stoolnoted. 01:35 Note Report called to MD Roman to bridge tender in ER. df1 02:06 Note Pt resting quietly with eyes closed with daughter at bedside. Awaiting transport df1 to MD Roman. Historical: - Allergies: 03/13 22:16 PENICILLINS; df1 23:58 terbutaline; df1 - Home Meds: 23:58 Vitamin C 500 mg/15 mL Oral liqd 500 mg/5 mL daily [Active]; ferrous sulfate 325 mg (65 df1 mg iron) Oral cpER daily [Active]; prochlorperazine maleate 10 mg Oral tab 1 tab 4 times per day [Active]; Vitamin Oral tab 1 tab once daily [Active]; 03/14 00:05 [place] 10-325 mg Oral tab 1 tab every 6 hours [Active]; morphine 60 mg Oral CERP 1 cap 2 df1 times per day [Active]; Zofran 4 mg/5 mL Oral soln 5 mL 4 times per day [Active]; mirtazapine 7.5 mg Oral tab 1 tab once daily [Active]; - PMHx: 03/13 22:16 chemo; df1 23:58 rectal cancer; mets to liver, bone, lung; seasonal allergy; radiation; df1 - PSHx: 23:58 ilieostomy; right knee surgery; df1 - Immunization history:: Adult Immunizations up to date, Client reports receiving the 2nd dose of the Covid vaccine. - Social history:: Smoking status: Patient denies any tobacco usage or history of. Screenin:34 Abuse screen: Denies threats or abuse. Nutritional screening: No deficits noted. df1 Tuberculosis screening: No symptoms or risk factors identified. Fall Risk Fall in past 12 months (25 points). Secondary diagnosis (15 points) impaired mobility, IV access (20 points). Ambulatory Aid- None/Bed Rest/Nurse Assist (0 pts). Gait- Normal/Bed Rest/Wheelchair (0 pts) Mental Status- Oriented to own ability (0 pts). Assessment: 23:31 General: Appears uncomfortable, ill, slender, emaciated, malnourished, Behavior is df1 calm, cooperative, Reports fatigue for >3 days. Pain: Complains of pain in right hip Pain does not radiate. Pain currently is 8 out of 10 on a pain scale. Neuro: No deficits noted. Cardiovascular: No deficits noted. Respiratory: Airway is patent Trachea midline Respiratory effort is even, unlabored, Respiratory pattern is regular, symmetrical. GI: Ileostomy site is clean and dry. Ostomy appliance is intact. Bowel sounds present X 4 quads. : Britton in place to gravity drainage. EENT: Eyes with exudate noted from outer aspect of conjuctiva of left eye, iris of left eye and inner aspect of conjunctiva of left eye. Derm: Parent/caregiver reports the patient having Family states wound to buttocks. Pt has wound care in home. Dressing changed today by wound care. CDI. Vital Signs: 21:21 BP 123 / 98; Pulse 79; Resp 20; Temp 98.8; Pulse Ox 100% on R/A; Weight 36.29 kg; df1 Height 5 ft. 9 in. (175.26 cm); Pain 8/10; 22:20 BP 129 / 101; Pulse 80; Resp 18; Pulse Ox 100% on R/A; df1 03/14 00:43 BP 127 / 90; Pulse 101; Resp 22; Pulse Ox 100% ; bs2 00:53 BP 127 / 90; Pulse 94; Resp 18; Pulse Ox 100% on R/A; df1 02:05 BP 119 / 83; Pulse 107; Resp 18; Pulse Ox 100% on R/A; df1 03/13 21:21 Body Mass Index 11.81 (36.29 kg, 175.26 cm) df1 ED Course: 03/13 21:11 Patient arrived in ED. cf2 21:16 Inder Roman MD is Attending Physician. nirav 21:20 Susana Ashton is Primary Nurse. df1 21:26 Triage completed. df1 21:58 XRAY Chest (1 view) In Process Unspecified. EDMS 22:15 Inserted saline lock: 20 gauge in right antecubital area, using aseptic technique. df1 22:27 SARS-COV-2 RT PCR Sent. df1 22:36 Ann-Marie Stephens MD is Hospitalizing Provider. nirav 23:05 Basic Metabolic Panel Sent. df1 23:05 CBC with Automated Diff Sent. df1 23:06 Basic Metabolic Panel Sent. df1 23:06 CBC with Diff Sent. df1 23:28 LFT's Sent. df1 23:28 Magnesium Sent. df1 23:28 NT PRO-BNP Sent. df1 23:28 Troponin (emerg Dept Use Only) Sent. df1 23:35 No provider procedures requiring assistance completed. df1 23:35 Arm band placed on right wrist. df1 23:35 Patient has correct armband on for positive identification. Bed in low position. Call df1 light in reach. Side rails up X 1. Adult w/ patient. well head pumper on. Pulse ox on. NIBP on. Door closed. Lights dimmed. Warm blanket given. Pillow given. Turned to back. 03/14 00:38 Accessed Port-a-Cath. using accessed w/ # 20 [place] needle, ,sterile technique, per 2 hospital protocol. Clean \T\ dry. Dressing intact. Good blood return. 00:42 Urine Culture Sent. bs2 01:10 Britton cath inserted, using sterile technique, 16 Fr., other Present upon arrival. df1 03:19 Patient transferred, IV remains in place. df1 Administered Medications: 03/13 21:30 Drug: NS 0.9% 1000 ml Route: IV; Rate: 1 bolus; Site: right antecubital; df1 23:06 Follow up: Response: No adverse reaction; IV Status: Completed infusion; IV Intake: df1 1000ml 22:45 Drug: morphine 2 mg Route: IVP; Site: right antecubital; df1 23:36 Follow up: Response: Pain is unchanged, physician notified df1 22:45 Drug: Zofran (Ondansetron) 4 mg Route: IVP; Site: right antecubital; df1 23:36 Follow up: Response: Nausea is decreased df1 03/14 00:11 Drug: levofloxacin 500 mg Volume: 100 ml; Route: IVPB; Infused Over: 60 mins; Site: bs2 right antecubital; 01:36 Follow up: IV Status: Completed infusion; IV Intake: 100ml df1 00:37 Drug: Potassium Chloride 20 mEq Route: IV; Rate: per protocol; Site: Port-a-cath; bs2 02:35 Follow up: IV Status: Completed infusion; IV Intake: 100ml df1 00:37 Drug: NS 0.9% with KCl 20 mEq/L 1000 ml Route: IV; Rate: 125 ml/hr; Site: Port-a-cath; bs2 03:13 Drug: morphine 2 mg Route: IVP; Site: right antecubital; df1 Intake: 03/13 23:06 IV: 1000ml; Total: 1000ml. df1 03/14 01:36 IV: 100ml; Total: 1100ml. df1 02:35 IV: 100ml; Total: 1200ml. df1 Output: 00:50 Urine: 450ml (Britton); Total: 450ml. df1 Outcome: 03/13 22:37 Decision to Hospitalize by Provider. nirav 23:14 ER care complete, transfer ordered by . [facility] 03/14 03:18 Transferred by ground EMS to [facility]. df1 Condition: stable Discharge instructions given to patient, family, Instructed on the need for transfer. 03:20 Patient left the ED. df1 Signatures: Dispatcher [employer] Inder Chavez MD MD cha Frazier, Celesta cf2 Ju Mack, RN RN bs2 Susana Ashton df1 Corrections: (The following items were deleted from the chart) 03/13 22:16 21:26 Note Pt presents via EMS c/o dehydration. Pt stopped chemo for colorectal CA. Pt df1 at home awaiting hospice. Pt A\T\Ox4 states right hip pain 01/03. IV with NS bolus started in route. Pt presents with britton from home. df1 03/14 00:07 03/13 22:16 PMHx: rectal cancer; mets to liver; df1 df1 03/14 00:07 03/13 23:58 PSHx: seasonal allergy; df1 df1 03/14 00:07 03/13 23:58 PSHx: radiation; df1 df1
[2021-03-13] MEDS ORDERED: MORPHINE 2 MG/ML SYR ONE (22:47)
[2021-03-13] MEDS ORDERED: ONDANSETRON 4 MG/2 ML VIAL ONE (22:47)
[2021-03-13 23:00] LABS: Protime INR 1.2
[2021-03-13 23:05] LABS: Basophils % 0.2 % (0-1.3); Hematocrit 29.5 % (36.0-45.0); Lymphocytes % 4.5 % (15.3-44.8); MPV 7.9 fL (7.6-11.3); RBC Red Blood Cell Count 3.21 M/uL (3.86-4.86)
[2021-03-13 23:41] LABS: ALT/SGPT 16 U/L (12-78); AST/SGOT 26 U/L (15-37); Albumin 1.9 g/dL (3.4-5.0); Alkaline Phosphatase 157 U/L (45-117); BUN Blood Urea Nitrogen 17 mg/dL (7-18); Bicarbonate 26 mmol/L (21-32); Bilirubin Direct 0.1 mg/dL (0-0.2); Bilirubin Total 0.5 mg/dL (0.2-1.0); Glucose Level 95 mg/dL (74-106); NT PRO-BNP 235 pg/mL (<125); Protein, Total 6.5 g/dL (6.4-8.2); Sodium Level 144 mmol/L (136-145); Troponin (Emerg Dept Use Only) 0.02 ng/mL (0.0-0.045)
[2021-03-13 23:42] LABS: Potassium 2.9 mmol/L (3.5-5.1)
[2021-03-13 23:54] LABS: Blood Morphology Comment NOT SEEN (NOT SEEN); Platelet Estimate ADEQ
[2021-03-14 00:18] LABS: Urine Blood 1+ (Negative); Urine Glucose Negative (Negative); Urine Protein 2+ (Negative); Urine Specific Gravity >=1.030 (1.005-1.030); Urine pH 5.5 (5.0-7.0)
[2021-03-14] MEDS ORDERED: Levofloxacin500mg IV 500 MG/100 ML BAG IV ONE (00:26)
[2021-03-14] MEDS ORDERED: NS KCL 20MEQ 1,000 ML IV ONE (00:52)
[2021-03-14] MEDS ORDERED: KCL 20 MEQ/100 mL IVPB 20 MEQ/100 ML BAG IV ONE (00:52)
[2021-03-14] MEDS ORDERED: MORPHINE 2 MG/ML SYR ONE (03:27)
[2021-03-14 03:28] VITALS: TEMP 98.8; O2SAT 100
[2021-03-14 03:33] VITALS: BP 119/83
--- NOTE | 2021-03-14 12:54 | RAD REPORT ---
EXAM DESCRIPTION: RAD - Chest Single View - 03/13/2021 9:58 pm CLINICAL HISTORY: COUGH, metastatic colon cancer COMPARISON: Portable December 2018 TECHNIQUE: AP portable chest image was obtained 03/13/2021 9:58 pm . FINDINGS: Right-sided Port-A-Cath is in place. Numerous variably sized metastatic lesions are presen t in the lung sylvester. Overall tumor volume in the lungs appears to have decreased from 2019. There is a larger mass in the lateral left upper lung field measuring larger than 2019. No failure or volume overload suspected. The focal lung parenchymal findings have a masslike appearan ce rather than a typical pneumonia finding. Pneumonia in the left upper lobe could potentially be mas ked by the underlying disease. Heart and vasculature are normal. No measurable pleural effusion and no pneumothorax. No acute bony abnormality seen. No acute aortic findings suspected. IMPRESSION: Numerous metastatic lesions in the lung parenchyma. Focally more dense left upper lobe disease could potentially mask superimposed pneumonia.
--- NOTE | 2021-03-14 16:43 | EKG ---
Test Date: 2021-03-13 Test Time: 23:13:51 Hearing And Speech Assistant: MEASUREMENT RESULTS: Intervals: Rate: 83 VT: 116 QRSD: 72 QT: 362 QTc: 425 [place]: P: 58 VT: 116 QRS: 62 T: 56 INTERPRETIVE STATEMENTS: Normal sinus rhythm Normal ECG Compared to ECG 12/31/2018 16:51:39 Left ventricular hypertrophy no longer present ST (T wave) deviation no longer present Electronically Signed On 03-14-21 16:41:03 CDT by Tanner Rodrigues
== END 2021-03-14 03:20 ==
LOC: ER 21:09
DX: E86.0 Dehydration (principal); C18.9 Malignant neoplasm of colon, unspecified; E87.6 Hypokalemia; D64.9 Anemia, unspecified; D72.825 Bandemia; C79.51 Secondary malignant neoplasm of bone; C78.7 Secondary malignant neoplasm of liver and intrahepatic bile duct; C78.00 Secondary malignant neoplasm of unspecified lung; Z20.822 Contact with and (suspected) exposure to COVID-19; Z88.0 Allergy status to penicillin; Z88.8 Allergy status to other drugs, medicaments and biological substances
CPT/HCPCS: 93005; 87040 ×2; 87088; 85025; 87086; 80048; 36415; 83735; 87205 ×2; 85610; 80076; 83605; 87077; 87186; 81003; 84484; 83880; 71045; 51702; 99285; U0003; J3480 ×2; J2270 ×2; J2405; 87076; 87181